=== PATIENT | male | born 1985 | race Caucasian/White ===

== ENCOUNTER 2024-04-29 07:12 | Emergency (ER) | payer OTHER ==
[2024-04-29] MEDS: Sodium Chloride 0.9% 1,000 ML IV ONE (07:42)
[2024-04-29 07:43] LABS: BASOPHILS ABSOLUTE AUTO 0.05 10^3/uL (0.00-0.50); BASOPHILS PERCENT AUTO 0.4 % (0-1); EOSINOPHILS ABSOLUTE AUTO 0.01 10^3/uL (0.00-1.50); EOSINOPHILS PERCENT AUTO 0.1 % (0-6); HEMATOCRIT 46.8 % (42.0-52.0); HEMOGLOBIN 16.2 g/dL (14.0-18.0); IMMATURE GRAN ABSOLUTE AUTO 0.01 10^3/uL (0.00-0.49); IMMATURE GRAN PERCENT AUTO 0.1 % (0.0-4.9); LYMPHOCYTES ABSOLUTE AUTO 0.44 10^3/uL (0.60-5.00); LYMPHOCYTES PERCENT AUTO 3.2 % (24-44); MEAN CORPUSCULAR HEMOGLOBIN 32.3 pg (27.0-32.0); MEAN CORPUSCULAR HGB CONC 34.6 g/dL (32.0-36.0); MEAN CORPUSCULAR VOLUME 93.2 fL (83.0-97.0); MONOCYTES ABSOLUTE AUTO 0.42 10^3/uL (0.00-1.50); MONOCYTES PERCENT AUTO 3.1 % (0-10); NEUTROPHILS ABSOLUTE AUTO 12.72 x10^3/uL (1.80-8.00); NEUTROPHILS PERCENT AUTO 93.1 % (41-71); PLATELET COUNT,PLT 262 10^3/uL (150-400); RED BLOOD CELL COUNT 5.02 x10^6/uL (4.50-6.00); WHITE BLOOD CELL COUNT,WBC 13.7 10^3/uL (4.0-11.0)
[2024-04-29] MEDS: Morphine 4 MG/ML VIAL IVPUSH ONE (07:51)
[2024-04-29] MEDS: Ondansetron 4 MG/2 ML SDV IVPUSH PRN (07:51)
[2024-04-29 07:54] LABS: ALBUMIN 4.7 g/dL (3.4-5.0); BILIRUBIN TOTAL 1.5 mg/dL (0.0-1.0); C-REACTIVE PROTEIN 1.34 mg/dL (<=0.50); CALCIUM 9.6 mg/dL (8.4-10.1); CREATININE 1.1 mg/dL (0.7-1.3); EST CRCL DRUG DOSING (CG) 86.36 mL/min; MAGNESIUM 1.9 mg/dL (1.8-2.4); POTASSIUM,K 4.2 mEq/L (3.5-5.0); PROTEIN TOTAL,TP 8.4 g/dL (6.4-8.2)
[2024-04-29 07:56] LABS: APPEARANCE,URINE SLIGHTLY CLOUDY (CLEAR); COLOR,URINE YELLOW (YELLOW); GLUCOSE,URINE NEGATIVE (NEGATIVE); KETONES,URINE >=160 mg/dL (NEGATIVE); LEUKOCYTE ESTERASE,URINE NEGATIVE (NEGATIVE); NITRITE,URINE NEGATIVE (NEGATIVE); OCCULT BLOOD,URINE NEGATIVE (NEGATIVE); PH,URINE 8.5 (4.5-8.0); PROTEIN,URINE 30 mg/dL (NEGATIVE)
[2024-04-29 07:58] LABS: BILIRUBIN,URINE SMALL (NEGATIVE)
[2024-04-29 08:07] LABS: AMORPHOUS SEDIMENT,URINE FEW /HPF (NOT SEEN); BACTERIA,URINE FEW /HPF (NOT SEEN); EPITHELIAL CELLS,URINE FEW /HPF (NOT SEEN); RBC,URINE 0-5 /HPF (0-5); WBC,URINE 0-5 /HPF (0-5)
[2024-04-29] MEDS: Iopamidol 755 Mg/ML 100 ML Bottle IVPUSH ONE (08:18)
[2024-04-29] MEDS: HYDROmorphone 1 MG/ML Syringe IVPUSH ONE (09:04)
[2024-04-29] MEDS: Piperacillin/Tazobactam 4.5 GM in Sodium Chloride 0.9% 100 ML IV ONE (09:37)
[2024-04-29] MEDS: Lactated Ringers 1,000 ML IV SCH (09:45)
== END 2024-04-29 10:00 ==
LOC: CC.ED 07:12
DX: K35.80 Unspecified acute appendicitis (principal); D72.828 Other elevated white blood cell count
CPT/HCPCS: 36415; 74177; 80053; 81001; 83735; 85025; 86140; 96361; 96365; 96375; 99285-25; J1170; J2270; J2405; J2543; J3490; J7030; J7120; Q9967